=== PATIENT | female | born 1930 | race Caucasian/White ===

== ENCOUNTER 2017-01-05 10:33 | Emergency (ER) | payer OTHER ==
[2017-01-05 09:09] LABS: ASCORBIC ACID (UR NOT ORDER) NEG (NEG); BILIRUBIN, URINE NEGATIVE (NEG); ER URINALYSIS TAT 0 Hrs 09 Mins; KETONE, URINE TRACE MG/DL (NEG); LEUKOCYTE ESTERASE(NOT OR NEG (NEG); NITRITE (URINE) NEG (NEG); WBC (NOT ORDERED) (RFLEX) 1 (0-5)
[2017-01-05 09:16] LABS: BASOPHILS 0.4 %; BASOPHILS ABSOLUTE 0.02 10/3/uL (0.0-0.16); EOSINOPHILS 1.1 %; EOSINOPHILS ABSOLUTE 0.06 10/3/uL (0.0-0.53); ER CBC TAT 0 Hrs 09 Mins; HEMOGLOBIN 9.9 g/dL (12.0-16.0); IMMATURE GRANULOCYTES 0.4 %; IMMATURE GRANULOCYTES ABSOLUTE 0.02 10/3/uL (0.0-0.11); LYMPHOCYTES 10.8 %; LYMPHOCYTES ABSOLUTE 0.57 10/3/uL (0.67-4.30); MEAN CORPUS HGB CONC 31.7 g/dL (32.0-36.0); MEAN PLATELET VOLUME 8.8 fL (9.2-13.0); MONOCYTES 3.6 %; MONOCYTES ABSOLUTE 0.19 10/3/uL (0.21-1.20); NEUTROPHILS 83.7 %; NEUTROPHILS ABSOLUTE 4.44 10/3/uL (2.02-8.40); RED CELL COUNT 3.91 10/6/uL (4.0-5.6); WHITE BLOOD CELLS 5.3 10/3/uL (4.5-10.5)
[2017-01-05 09:17] LABS: HEMATOCRIT 31.2 % (36.0-48.0); MANUAL DIFF NO %; MEAN CORPUSCULAR HEMOGLOB 25.3 pg (26.0-34.0); MEAN CORPUSCULAR VOLUME 79.8 fL (80-100); PLATELET COUNT 417 10/3/uL (150-400)
[2017-01-05 09:25] LABS: INTERNATIONAL NORMAL RATI 1.1 UNITS (-); PARTIAL THROMBO TIME 26.1 SEC (22.5-37.2); PROTIME (NOT ORD) 13.6 SEC (12.0-14.5)
[2017-01-05 09:55] LABS: ALBUMIN 3.2 G/DL (3.5-5.0); ALKALINE PHOSPHATASE 144 U/L (45-117); BUN (BLOOD UREA NITROGEN) 11 MG/DL (6-23); CALCIUM, SERUM 9.7 MG/DL (8.5-10.4); CHEST PAIN PROFILE TAT 0 Hrs 21 Mins; CHLORIDE, SERUM 98 MMOL/L (96-112); CO2 (CARBON DIOXIDE) 33 MMOL/L (24-34); CREATININE 0.64 MG/DL (0.55-1.02); DIRECT BILIRUBIN < 0.1 MG/DL (0.0-0.4); GFR AFRICAN AMERICAN 94 ML/MIN (>=60); GFR NON AFRICAN AMERICAN 81 ML/MIN (>=60); GLUCOSE, SERUM 106 MG/DL (60-99); INDIRECT BILIRUBIN(NOT ORDER) 0.2 MG/DL (0.1-0.9); POTASSIUM, SERUM 3.6 MMOL/L (3.5-5.3); SGOT(AST) 36 U/L (5-40); SGPT(ALT) 29 U/L (5-65); SODIUM, SERUM 139 MMOL/L (135-148); TOTAL BILIRUBIN 0.3 MG/DL (0-1.2); TROPONIN I <0.02 NG/ML (<0.05)
== END 2017-01-05 11:27 | disposition home or self-care (01) ==
LOC: ER 10:33
PROVIDERS: Emergency Medicine
DX: R10.9 Unspecified abdominal pain (principal); Z87.891 Personal history of nicotine dependence; Z90.710 Acquired absence of both cervix and uterus; Z88.8 Allergy status to other drugs, medicaments and biological substances
CPT/HCPCS: 74176; 80048; 80076; 81001; 83605; 83690; 83735; 84484; 85025; 85610; 85730; 93005; 96361; 96374; 99285; J2405